=== PATIENT | male | born 1955 | race Caucasian/White ===

== ENCOUNTER → 2017-02-20 | Outpatient (CLI) | payer BC, OTHER ==
--- NOTE | 2017-02-20 10:32 | PCVCIMAG ---
APPROVED REPORT Exam: Stress Echocardiogram Indication: Coronary atherosclerosis, PVCs, HLP Patient Location: Echo lab Stress Nurse: Yuko Sanders RN Status: routine Ht: 6 ft 0 in HR: 72 bpm BP: 120/80 mmHg Rhythm: NSR Procedure The patient underwent an Exercise Stress Test using the Johnnie Protocol. Blood pressure, heart rate, and EKG were monitored. An Echocardiogram was performed by sterilization technician in four stages in quad fashion. At peak stress, four selected images were obtained and placed side by side with resting images for comparison. Stress Test Details Stress Test: Exercise stress testing was performed using a Johnnie protocol. HR Resting HR: 72 bpmMax Heart Rate (APMHR): 158 bpm Max HR Achieved: 151 bpmTarget HR (85% APMHR): 134 bpm % of APMHR: 95 Recovery HR: 102 bpm HR response to stress: Normal HR response to stress BP Resting BP: 120/80 mmHg Max BP: 166/74 mmHg Recovery BP: 138/74 mmHg ECG Resting ECG: Sinus Rhythm Stress ECG: Sinus Rhythm ST Change: Non-ischemic Arrhythmia: Rare isolated PVCs Recovery ECG: Sinus Rhythm Recovery Arrhythmia: Rare isolated PVCs Clinical Reason for Termination: Maximal effort Stress Symptoms: Dyspnea Exercise duration: 10 min 33 sec Highest Stage Achieved: Stage 4: 4.2 mph at 16% grade. Exercise capacity: 13.4 METs Overall Exercise Capacity for Age: Normal Pre-Stress Echo The resting Echocardiogram showed normal left ventricular contractility with an estimated Ejection Fraction of about >55%. Normal wall motion in all segments on baseline images. Post-Stress Echo The stress Echocardiogram showed normal left ventricular contractility with an estimated Ejection Fraction of about 65%. Normal augmentation of wall motion in all segments on post stress images. Clinical No clinical or ECG evidence for ischemia. Conclusion Clinical Response: Non-ischemic Exercise Capacity: Average Stress ECG Response: Non-ischemic Stress Echo Images: Non-ischemic The left ventricle is normal in size and wall thickness in both the rest and stress images. Other Information Study Quality: Adequate <Conclusion> The left ventricle is normal in size and wall thickness in both the rest and stress images.
== END | disposition home or self-care (01) ==
LOC: PCVCIMAG 09:37
PROVIDERS: ATTEND Internal Medicine Cardiovascular Disease
DX: I25.10 Atherosclerotic heart disease of native coronary artery without angina pectoris (principal); I49.3 Ventricular premature depolarization; E78.5 Hyperlipidemia, unspecified
CPT/HCPCS: 93325; 93351

== ENCOUNTER → 2018-02-19 | Outpatient (CLI) | payer BC ==
--- NOTE | 2018-02-19 09:30 | PCVCIMAG ---
APPROVED REPORT Study performed: 02/19/2018 08:20:05 EXAM: Comprehensive 2D, Doppler, and color-flow Echocardiogram Patient Location: Echo lab Room #: [id number]: routine BSA: 2.20 HR: 74 bpmBP: 126/76 mmHg Rhythm: NSR Other Information Study Quality: Good Risk Factors: Cardiac Risk Factors: Hyperlipidemia Indications CAD Palpitations HX: PVCs,Cor Ca+ 55, 2D Dimensions IVSd: 10.32 (7-11mm)LVOT Diam: 25.32 (18-24mm) LVDd: 45.43 mm PWd: 9.79 (7-11mm)Ascending Ao: 33.17 (22-36mm) LVDs: 23.92 (25-40mm) Left Atrium: 38.84 (27-40mm) Aortic Root: 27.39 mm LV Single Plane 4CH: 59.44 % LV Single Plane 2CH: 70.36 % Biplane EF: 66.0 % Volumes Left Atrial Volume (Systole) Single Plane 4CH: 58.32 mLSingle Plane 2CH: 59.06 mL Biplane LA Volume: 62.00 mLLA ESV Index: 28.00 mL/m2 Aortic Valve AoV Peak Addy.: 1.34 m/s AO Peak Gr.: 7.16 mmHgLVOT Max P.21 mmHg LVOT Max V: 1.03 m/s ALANA Vmax: 3.86 cm2 Mitral Valve E/A Ratio: 1.0 MV Decel. Time: 142.27 ms MV E Max Addy.: 0.72 m/s MV A Addy.: 0.71 m/s IVRT: 100.35 ms TDI E/Lateral E': 9.00E/Medial E': 10.29 Medial E' Addy.: 0.07 m/s Lateral E' Addy.: 0.08 m/s Pulmonary Valve PV Peak Addy.: 1.06 m/sPV Peak Gr.: 4.49 mmHg Pulmonary Vein P Vein S: 0.81 m/sP Vein A: 0.39 m/s P Vein D: 0.52 m/sP Vein A Dur.: 93.4 msec P Vein S/D Ratio: 1.56 Tricuspid Valve TR Peak Addy.: 2.34 m/s TR Peak Gr.: 21.85 mmHg TV Vmax: 0.48 m/sPA Pressure: 29.00 mmHg Left Ventricle The left ventricle is normal size. There is normal LV segmental wall motion. There is normal left ventricular wall thickness. Left ventricular systolic function is normal. The left ventricular ejection fraction is within the normal range. LVEF is 65-70%. Right Ventricle The right ventricle is normal size. The right ventricular systolic function is normal. Atria The left atrium size is normal. The right atrium size is normal. Aortic Valve The aortic valve is normal in structure. No aortic regurgitation is present. There is no aortic valvular stenosis. Mitral Valve The mitral valve is normal in structure. There is no mitral valve regurgitation noted. No evidence of mitral valve stenosis. Tricuspid Valve The tricuspid valve is normal in structure. There is trivial tricuspid valve regurgitation noted. No pulmonary hypertension. Pulmonic Valve The pulmonary valve is normal in structure. There is no pulmonic valvular regurgitation. Great Vessels The aortic root is normal in size. The ascending aorta is normal in size. Aortic arch is normal in caliber. IVC is normal in size and collapses >50% with inspiration. Pericardium There is no pericardial effusion. There is no pleural effusion. <Conclusion> The left ventricle is normal size. There is normal left ventricular wall thickness. Left ventricular systolic function is normal. The right ventricle is normal size. The left atrium size is normal. The aortic valve is normal in structure. The mitral valve is normal in structure. There is no mitral valve regurgitation noted. There is trivial tricuspid valve regurgitation noted.
== END | disposition home or self-care (01) ==
LOC: PCVCIMAG 08:18
PROVIDERS: ATTEND Internal Medicine Cardiovascular Disease
DX: I07.1 Rheumatic tricuspid insufficiency (principal); I25.119 Atherosclerotic heart disease of native coronary artery with unspecified angina pectoris; I49.3 Ventricular premature depolarization; E87.6 Hypokalemia; E78.00 Pure hypercholesterolemia, unspecified; R00.2 Palpitations
CPT/HCPCS: 93306